=== PATIENT | male | born 1990 | race Caucasian/White ===

== ENCOUNTER 2017-08-04 08:08 | Outpatient (CLI) | payer OTHER ==
[2017-08-04] VITALS (7 sets, daily range): BP systolic 115–127; BP diastolic 58–75; PULSE 58–76; TEMP 98.3
[~2017-08-04] VITALS: Ht 175.3 cm; Wt 76.8 kg
[~2017-08-04 08:08] MED LIST: AZELEX 20% CREA30 GM TP; BENZOYL PEROXIDE TP; SODIUM SULFACE TP; VITAMIN D31000 I1 PO
[2017-08-04 10:25] LABS: CEREBROSPINAL TUBE #4; CSF APPEARANCE CLEAR; CSF COLOR COLORLESS
[2017-08-04 10:26] LABS: CSF POLYMORPHONUCLEAR 0 % (0-6)
== END 2017-08-04 10:33 | disposition home or self-care (01) ==
LOC: COL.RAD 08:08
PROVIDERS: Psychiatry & Neurology Neurology
DX: G37.8 Other specified demyelinating diseases of central nervous system (principal)